=== PATIENT | female | born 1990 | race Hispanic/Latino ===

== ENCOUNTER 2017-09-06 21:32 | Emergency (ER) | payer MEDICAID, OTHER ==
[2017-09-06 22:25] LABS: BASOPHILS % (AUTO) 0.5 % (0.0-5.0); EOSINOPHILS % (AUTO) 1.5 % (0.0-8.0); HEMATOCRIT 40.5 % (36-48); LYMPHOCYTES % (AUTO) 22.8 % (21.0-51.0); MEAN CORPUSCULAR HEMOGLOBIN 25.7 pg (27.0-33.0); MEAN CORPUSCULAR HGB CONC 33.3 g/dL (32.0-36.0); MEAN CORPUSCULAR VOLUME 77.1 fL (79-99); MONOCYTES % (AUTO) 7.3 % (3.0-13.0); NEUTROPHILS % (AUTO) 67.9 % (40.0-77.0); PLATELET COUNT (AUTO) 218 K/uL (130-400); RED BLOOD CELL COUNT(AUTO) 5.25 MIL/uL (4.00-5.50); RED CELL DISTRIBUTION WIDTH 14.9 % (11.0-15.5); WHITE BLOOD COUNT (AUTO) 10.3 K/uL (4.8-10.8)
[2017-09-06 22:39] LABS: CARBON DIOXIDE 26 mmol/L (21-32); CHLORIDE 104 mmol/L (101-111); CREATININE 0.7 mg/dL (0.5-1.5); GLOMERULAR FILTR. RATE CALC 108 mL/min (>60); GLUCOSE,RANDOM 87 mg/dL (70-105); INR 1.02 (0.85-1.15); PARTIAL THROMBOPLASTIN TIME 28.4 SEC (26.3-35.5); POTASSIUM 3.7 mmol/L (3.5-5.1); PROTHROMBIN TIME 10.7 SEC (9.6-11.6); SODIUM SERUM 140 mmol/L (136-145); UREA NITROGEN, BLOOD 10 mg/dL (7-18)
[2017-09-06 22:53] LABS: ALANINE AMINOTRANSFERASE 32 U/L (12-78); ALBUMIN 3.9 g/dL (3.5-5.0); ASPARTATE AMINOTRANSFERASE 28 U/L (10-37); BILIRUBIN,TOTAL 0.5 mg/dL (0.2-1.0); CREATINE KINASE MB < 0.5 ng/mL (0.5-3.6); CREATINE KINASE, TOTAL 82 U/L (21-232); MYOGLOBIN 29 ng/mL (10-92); TOTAL PROTEIN, SERUM 8.2 g/dL (6.0-8.3)
[2017-09-06] MEDS ORDERED: SODIUM CHLORIDE 0.9% 1000ML 1,000 ML IV ONE (23:24)
[2017-09-06] MEDS ORDERED: KETOROLAC TROMETHAMINE 30MG/ML ONE (23:24)
[2017-09-06] MEDS ORDERED: DiphenhydrAMINE HCL 50 MG/ML VIAL ONE (23:24)
[2017-09-06] MEDS ORDERED: PROCHLORPERAZINE EDISYLATE 10 MG/2 ML VIAL ONE (23:24)
[2017-09-06 23:50] LABS: APPEARANCE,URINE Cloudy (CLEAR); BILIRUBIN,URINE Negative (NEGATIVE); COLOR,URINE Yellow (YELLOW); GLUCOSE, URINE (UA) Negative (NEGATIVE); KETONES,URINE 15 mg/dL (NEGATIVE); LEUKOCYTE ESTERASE ,URINE Large (NEGATIVE); NITRATE,URINE Negative (NEGATIVE); OCCULT BLOOD,URINE Large (NEGATIVE); PH,URINE 5.5 (5.0-8.0); PROTEIN,URINE Negative (NEGATIVE); UROBILINOGEN,URINE 0.2 mg/dL (0.2-1.0)
[2017-09-06 23:57] LABS: AMPHET/METH SCREEN,URINE NEGATIVE (NEGATIVE); BARBITURATE SCREEN, URINE NEGATIVE (NEGATIVE); BENZODIAZEPINES SCREEN,URINE NEGATIVE (NEGATIVE); CANNABINOID SCREEN,URINE NEGATIVE (NEGATIVE); COCAINE SCREEN,URINE NEGATIVE (NEGATIVE); OPIATE SCREEN,URINE NEGATIVE (NEGATIVE); PHENCYCLIDINE SCREEN,URINE NEGATIVE (NEGATIVE)
[2017-09-07 00:10] LABS: BACTERIA,URINE Few /HPF (None Seen)
[2017-09-07 00:11] LABS: MUCUS,URINE Few LPF (None Seen); SQUAMOUS EPITHELIAL CELL,UR Many /HPF (0-2)
[2017-09-07] MEDS ORDERED: DEXAMETHASONE SOD PHOSPHATE 10MG/ML 1ML VIAL ONE (00:43)
== END 2017-09-07 01:18 | disposition home or self-care (01) ==
LOC: EDH 21:32
DX: G43.809 Other migraine, not intractable, without status migrainosus (principal)
CPT/HCPCS: 36415; 70450; 71045; 80053; 80305; 81001; 81025; 82550; 82553; 82948; 83874; 84484; 85025; 85610; 85730; 93005; 94761; 96361; 96374; 96375; 99285; J0780; J1100; J1200; J1885; J7030

== ENCOUNTER 2020-04-13 07:00 | Day surgery (SDC) | payer OTHER ==
[2020-04-12 16:00] LABS: BASOPHILS % (AUTO) 0.3 % (0.0-5.0); EOSINOPHILS % (AUTO) 1.3 % (0.0-8.0); HEMATOCRIT 28.4 % (36-48); LYMPHOCYTES % (AUTO) 23.1 % (21.0-51.0); MEAN CORPUSCULAR HEMOGLOBIN 22.9 pg (27.0-33.0); MEAN CORPUSCULAR HGB CONC 28.5 g/dL (32.0-36.0); MEAN CORPUSCULAR VOLUME 80.5 fL (79-99); MONOCYTES % (AUTO) 7.7 % (3.0-13.0); PLATELET COUNT (AUTO) 331 K/uL (130-400); RED BLOOD CELL COUNT(AUTO) 3.53 MIL/uL (4.00-5.50); RED CELL DISTRIBUTION WIDTH 20.2 % (11.0-15.5); WHITE BLOOD COUNT (AUTO) 9.1 K/uL (4.8-10.8)
[2020-04-12 16:22] VITALS: BP 109/67
[~2020-04-13] VITALS: Ht 157.5 cm; Wt 101.2 kg
[2020-04-13] VITALS (13 sets, daily range): BP systolic 85–114; BP diastolic 38–72
[~2020-04-13 07:00] MED LIST: FERR325T22 PO; NORE1CAP PO
[2020-04-13] MEDS ORDERED: CALDOLOR 800MG+NS 250ML 250 ML IV PRN (08:00)
[2020-04-13] MEDS ORDERED: CEFAZOLIN 3GM /D5W 100ML 100 ML IV PRN (08:00)
[2020-04-13] MEDS ORDERED: LACTATED RINGERS 1000ML 1,000 ML IV SCH (08:00)
[2020-04-13] MEDS ORDERED: SODIUM CHLORIDE 0.9% 1000ML 1,000 ML IV ONE (10:17)
[2020-04-13] MEDS ORDERED: CEFAZOLIN SODIUM 1 GM VIAL ONE (11:36)
[2020-04-13] MEDS ORDERED: LIDOCAINE PF 2% 5ML ABBOJECT ONE (13:00)
[2020-04-13] MEDS ORDERED: PROPOFOL 10 MG/ML 20ML VIAL IV ONE (13:00)
[2020-04-13] MEDS ORDERED: ROCURONIUM 10MG/1ML SYR 10 MG/ML ML ONE (13:00)
[2020-04-13] MEDS ORDERED: SUCCINYLCHOLINE CHLORIDE 20 MG/ML 10 ML VIAL ONE (13:00)
[2020-04-13] MEDS ORDERED: FENTANYL CITRATE PF 50 MCG/1 ML 2ML VIAL ONE (13:01)
[2020-04-13] MEDS ORDERED: GLYCOPYRROLATE 1 MG/5 ML SYRINGE ONE (13:38)
[2020-04-13] MEDS ORDERED: NEOSTIGMINE 5MG/5ML SYR IV ONE (13:38)
[2020-04-13] MEDS ORDERED: MEPERIDINE-PF 25 MG/ML SYG ONE (14:26)
--- NOTE | 2020-04-13 15:00 | NUR ---
DAY PT ARRIVAL PT ARRIVED FROM DAY PT STATES ABDOMINAL DISCOMFORT AND NAUSEA, SCANT DRAINAGE NOTED TO [facility]. CALLED TO BEDSIDE
[2020-04-13] MEDS ORDERED: ONDANSETRON HCL 4 MG/2 ML VIAL ONE (15:33)
[2020-04-13] MEDS ORDERED: ACETAMINOPHEN-CODEINE 300/30MG TAB ONE (15:33)
--- NOTE | 2020-04-13 16:00 | NUR ---
DAY PT DC PT STATES RELIEF OF SYMPTOMS AFTER ATTEMPTING TO HAVE AN EMESIS EPISODE. WHEELED TO FRONT ER LOBBY FOR DISCHARGE.
== END 2020-04-13 16:00 | disposition home or self-care (01) ==
LOC: DAH 07:00
PROVIDERS: ATTEND Obstetrics & Gynecology
DX: N92.1 Excessive and frequent menstruation with irregular cycle (principal); D50.0 Iron deficiency anemia secondary to blood loss (chronic); N85.4 Malposition of uterus; Z98.891 History of uterine scar from previous surgery
CPT/HCPCS: 36415; 36430; 58563; 84703; 85025; 86850; 86900; 86901; 86922; 86923; A4215 ×2; A4216; A4221; A4222; A4223 ×3; A4351; A4355; A4606; A4663; J0330; J0690; J1741; J2001; J2175; J2405; J2704; J2710; J3010; J3490; J7030 ×3; J7120 ×2; P9016 ×2